=== PATIENT | female | born 2000 | race African-American/Black ===

== ENCOUNTER 2023-04-19 22:19 | Emergency (ER) | payer BC ==
[~2023-04-19] VITALS: Ht 167.6 cm; Wt 56.8 kg
[2023-04-19 22:23] VITALS: TEMP 97.2
[2023-04-19] MEDS ORDERED: NS 1,000 ML IV ONE (23:45)
[2023-04-19] MEDS ORDERED: LORazepam 2 MG/ML 1 ML VIAL IV ONE (23:45)
[2023-04-20 00:07] LABS: BASO # 0.1 K/mm3 (0.0-0.2); BASO % 0.8 % (0.0-2.0); EOS # 0.1 K/mm3 (0.0-0.7); EOS % 1.5 % (0.0-4.0); GRAN # 6.8 K/mm3 (1.4-6.5); GRAN % 70.9 % (42.2-75.2); HEMOGLOBIN 11.2 g/dl (12.5-16.0); LYMPH # 1.9 K/mm3 (1.2-3.4); LYMPH % 19.9 % (20.0-51.0); MEAN CELL VOLUME 77 fl (80.0-100.0); MEAN CORPUSCULAR HEMOGLOBIN 23 pg (27-31); MEAN CORPUSCULAR HGB CONC 30 g/dl (33.0-37.0); MONO # 0.7 K/mm3 (0.1-0.6); MONO % 6.7 % (1.7-9.3); PLATELET COUNT 258 K/mm3 (130-400); REDCELL DISTRIBUTION WIDTH-CV 17.5 % (11.5-14.5)
[2023-04-20 00:20] LABS: CALCIUM 9.3 mg/dL (8.4-10.2); CREATININE, serum 0.95 mg/dL (0.57-1.11); POTASSIUM 4.8 mmol/L (3.5-4.5)
[2023-04-20 00:41] LABS: COLLECTION METHOD CLEAN CATCH
[2023-04-20 00:47] LABS: URINE APPEARANCE Clear (CLEAR/HAZY); URINE COLOR Yellow (YELLOW); URINE PROTEIN(semi-quant) Negative (NEGATIVE)
[2023-04-20 00:48] LABS: URINE BLOOD Negative (NEGATIVE); URINE GLUCOSE Negative (NEGATIVE); URINE KETONE Negative (NEGATIVE); URINE NITRATE Negative (NEGATIVE); URINE UROBILINOGEN 0.2 E.U/dL (0.2-1.0)
[2023-04-20 00:53] LABS: MUCOUS Present (NOT PRESENT); URINE RBC None Seen /hpf (0-2)
[2023-04-20 01:48] VITALS: BP 106/64; PULSE 99
== END 2023-04-20 01:56 | disposition home or self-care (01) ==
LOC: COL.ER 22:19
PROVIDERS: Internal Medicine
DX: F12.929 Cannabis use, unspecified with intoxication, unspecified (principal); F45.8 Other somatoform disorders; F41.0 Panic disorder [episodic paroxysmal anxiety]
CPT/HCPCS: J2060; J7030